=== PATIENT | male | born 1965 | race American Indian/Alaskan Native ===

== ENCOUNTER 2022-07-26 07:01 | Observation (INO) | payer OTHER ==
[2022-07-26] MEDS ORDERED: methylPREDNISolone Sod Succinate 125 MG/2 ML INJ IV ONE (07:31)
[2022-07-26] MEDS ORDERED: diphenhydrAMINE 50 MG/ML VIAL IV ONE (07:31)
[2022-07-26] MEDS ORDERED: FAMOTIDINE 20 MG/2 ML INJ IV ONE (07:31)
--- NOTE | 2022-07-26 07:35 | Emergency Department Report ---
HPI - General Chief Complaint: Allergic Reaction Time Seen by Provider: 07/26/22 07:30 - HPI HPI: Room 17 The patient is a 56-year-old male present with chief complaint of angioedema. Patient states he started lisinopril approximately 1 month ago for hypertension and he awakened this morning noticing that his top lip was swollen. Patient denies tongue swelling or difficulty breathing. ED Past Medical Hx - Past Medical History Hx Hypertension: Yes - Surgical History Past Surgical History?: No - Family History Family history: no significant - Social History Smoking Status: Current Some Day Smoker Substance Use Type: None (Denies illicit drug), Alcohol (Occasional) ED Review of Systems ROS: Stated complaint: SWOLLEN LIP/ALLERGIC REACTION Other details as noted in HPI Constitutional: no symptoms reported Eyes: denies: eye pain ENT: other (Upper lip swelling) Respiratory: denies: shortness of breath Cardiovascular: denies: chest pain Endocrine: no symptoms reported Gastrointestinal: denies: vomiting Genitourinary: denies: dysuria Musculoskeletal: denies: back pain Neurological: denies: headache Physical Exam - Physical Exam Vital Signs: Vital Signs 07/26/22 07:15 Temperature 98.2 F Pulse Rate 82 Respiratory 16 Rate Blood Pressure 177/89 [Right] O2 Sat by Pulse 97 Oximetry Physical Exam: GENERAL: The patient is well-developed well-nourished male lying on stretcher not appearing to be in acute distress. [] HEENT: Normocephalic. Atraumatic. Extraocular motions are intact. Mild upper lip swelling. Oropharynx clear. Uvula midline. No tongue swelling NECK: Supple. No meningitic signs are noted. There is no stridor CHEST/LUNGS: Clear to auscultation. There is no respiratory distress noted. HEART/CARDIOVASCULAR: Regular. There is no tachycardia. There is no gallop rub or murmur. ABDOMEN: Abdomen is soft, nontender. Patient has normal bowel sounds. There is no abdominal distention. SKIN: There is no rash. There is no edema. There is no diaphoresis. NEURO: The patient is awake, alert, and oriented. The patient is cooperative. The patient has no focal neurologic deficits. The patient has normal speech and gait. GCS 15 MUSCULOSKELETAL: There is no evidence of acute injury. ED Course Vital Signs 07/26/22 07:15 Temperature 98.2 F Pulse Rate 82 Respiratory 16 Rate Blood Pressure 177/89 [Right] O2 Sat by Pulse 97 Oximetry ED Medical Decision Making - Lab Data Result diagrams: 07/26/22 07:52 07/26/22 07:52 Laboratory Tests 07/26/22 07/26/22 07:52 07:52 WBC 8.4 RBC 4.60 Hgb 13.8 Hct 42.2 MCV 92 MCH 30 MCHC 33 RDW 14.6 Plt Count 204 Lymph % (Auto) 18.0 Christian % (Auto) 7.8 H Eos % (Auto) 1.5 Baso % (Auto) 0.8 Lymph # (Auto) 1.5 Christian # (Auto) 0.7 Eos # (Auto) 0.1 Baso # (Auto) 0.1 Seg Neutrophils % 71.9 H Seg Neutrophils # 6.0 Sodium 140 Potassium 4.1 Chloride 106.9 Carbon Dioxide 24 Anion Gap 13 BUN 17 Creatinine 0.8 Estimated GFR > 60 BUN/Creatinine Ratio 21 Glucose 111 H Calcium 9.2 - Differential Diagnosis Angioedema Critical care attestation.: If time is entered above; I have spent that time in minutes in the direct care of this critically ill patient, excluding procedure time. ED Disposition Clinical Impression: Angioedema Disposition: 09 ADMITTED INPATIENT Is pt being admited?: Yes Does the pt Need Aspirin: Yes Condition: Fair Time of Disposition: 09:58 (Care transferred to hospitalist Dr. Ayon (discussed with Dr. Moore))
[2022-07-26 09:03] LABS: Basophils # (Auto) 0.1 K/mm3 (0.0-0.1); Basophils % (Auto) 0.8 % (0.0-1.8); Eosinophils # (Auto) 0.1 K/mm3 (0.0-0.4); Eosinophils % (Auto) 1.5 % (0.0-4.3); Hematocrit 42.2 % (35.5-45.6); Hemoglobin 13.8 gm/dl (11.8-15.2); Lymphocytes # (Auto) 1.5 K/mm3 (1.2-5.4); Mean Corpuscular HGB Conc 33 % (32-34); Mean Corpuscular Volume 92 fl (84-94); Monocytes # (Auto) 0.7 K/mm3 (0.0-0.8); Monocytes % (Auto) 7.8 % (0.0-7.3); Platelet Count 204 K/mm3 (140-440); Red Cell Distribution Width 14.6 % (13.2-15.2)
[2022-07-26 09:25] LABS: BUN/Creatinine Ratio 21; Blood Urea Nitrogen 17 mg/dL (9-20); Calcium 9.2 mg/dL (8.4-10.2); Hemolysis Index 40
[2022-07-26] MEDS ORDERED: ONDANSETRON 4 MG/2 ML INJ IV PRN (10:14)
[2022-07-26] MEDS ORDERED: MORPHINE 2 MG/1 ML INJ IV PRN (10:14)
[2022-07-26] MEDS ORDERED: ACETAMINOPHEN 325 MG TAB PO PRN (10:14)
[2022-07-26] MEDS ORDERED: diphenhydrAMINE 25 MG CAP PO PRN (12:16)
[2022-07-26] MEDS ORDERED: diphenhydrAMINE 50 MG/ML VIAL IV PRN (12:16)
--- NOTE | 2022-07-26 12:18 | History and Physical Report ---
History of Present Illness Date of examination: 07/26/22 Date of admission: 07/26/22 10:14 Chief complaint: lip swelling History of present illness: The patient is a 56-year-old male present with chief complaint of angioedema. Patient states he started lisinopril approximately 1 month ago for hypertension and he awakened this morning noticing that his top lip was swollen. Patient denies tongue swelling or difficulty breathing. Review of System: Constitutional: no fever, no chills, no weight loss Ears, eyes, nose, mouth and throat: no nasal congestion, no nasal discharge, no sinus pressure, no vision change, no red eye. Neck: No neck pain or rigidity. Cardiovascular: No chest pain, no orthopnea, no palpitations, no leg swelling Respiratory: No shortness of breath, no cough, no congestion, no wheezing Gastrointestinal: no abdominal pain, no nausea, no vomiting Genitourinary : no dysuria, no hematuria Musculoskeletal: no joint swelling or muscle ache Integumentary: no rash, no pruritis Neurological: no parathesias, no numbness, no tingling Endocrine: no cold or heat intolerance, no polyuria or polydipsia Hematologic/Lymphatic: no easy bruising, no easy bleeding, no gland swelling Allergic/Immunologic: no urticaria, no angioedema. Past History Past Medical History: hypertension Past Surgical History: denies: No surgical history Social history: lives with family, smoking (1/2 pack per day ). denies: IV drug use Family history: hypertension Medications and Allergies Allergies Allergy/AdvReac Type Severity Reaction Status Date / Time JOON Inhibitors Allergy Severe Angioedema Verified 07/26/22 12:39 lisinopril AdvReac Angioedema Verified 07/26/22 12:33 Active Meds: Active Medications Acetaminophen (Acetaminophen 325 Mg Tab) 650 mg PO Q4H PRN PRN Reason: Pain MILD(1-3)/Fever >100.5/JORDAN Diphenhydramine HCl (Diphenhydramine 25 Mg Cap) 25 mg PO Q8H PRN PRN Reason: Itching Diphenhydramine HCl (Diphenhydramine 50 Mg/Ml Vial) 25 mg IV Q6H PRN PRN Reason: Itching Morphine Sulfate (Morphine 2 Mg/1 Ml Inj) 2 mg IV Q4H PRN PRN Reason: Pain, Moderate (4-6) Ondansetron HCl (Ondansetron 4 Mg/2 Ml Inj) 4 mg IV Q8H PRN PRN Reason: Nausea And Vomiting Prednisone (Prednisone 10 Mg Tab) 30 mg PO QDAY SHALONDA Sodium Chloride (Sodium Chloride 0.9% 10 Ml Flush Syringe) 10 ml IV BID SHALONDA Sodium Chloride (Sodium Chloride 0.9% 10 Ml Flush Syringe) 10 ml IV PRN PRN PRN Reason: LINE FLUSH Exam - Physical Exam Narrative exam: GENERAL: well-developed and well-nourished lying on bed appeared to be in no discomfort. HEENT: Normocephalic. Atraumatic. No conjunctival congestion or icterus. Patient has moist mucous membranes. NECK: Supple. Trachea midline. CHEST/LUNGS: Clear to auscultated bilaterally, breathing nonlabored. No wheezes crackles or rhonchi. HEART/CARDIOVASCULAR: Regular in rate and rhythm. S1 and S2 positive. ABDOMEN: Abdomen is soft, nontender. Patient has normal bowel sounds. SKIN: There is no rash. Warm and dry. NEURO: No focal motor deficit. Follows command. MUSCULOSKELETAL: No joint effusion or tenderness. EXTRIMITY: No edema, no cyanosis or clubbing. PSYCH: Cooperative. - Constitutional Vitals: Temp Pulse Resp BP Pulse Ox 96.8 F L 88 16 158/92 100 07/26/22 08:07 07/26/22 08:07 07/26/22 08:07 07/26/22 08:07 07/26/22 08:07 Results - Labs CBC & Chem 7: 07/26/22 07:52 07/26/22 07:52 Labs: Abnormal lab results 07/26/22 07/26/22 Range/Units 07:52 07:52 Edmunds % (Auto) 7.8 H (0.0-7.3) % Seg Neutrophils % 71.9 H (40.0-70.0) % Glucose 111 H (75-100) mg/dL Assessment and Plan -- Angioedema of upper lip due to lisinopril -- Hypertension -- Obesity -- Tobacco abuse We will admit the patient with observation status at [facility] with remote telemetry We will stop lisinopril, placed on scheduled steroid and Benadryl as needed Continue to monitor, if patient tolerates diet and swelling improves possible DC soon BP currently stable without medicine. Counseled for dietary intake and smoking cessation
[2022-07-26] MEDS ORDERED: predniSONE 10 MG TAB PO SCH (13:00)
--- NOTE | 2022-07-26 15:29 | Discharge Summary ---
Providers - Providers Date of Admission: 07/26/22 10:14 Date of discharge: 07/26/22 Attending physician: OLGA LOUIE Primary care physician: BAKER BENCH Hospitalization Condition: Fair Final Discharge Diagnosis (Prints w/discharge instructions): -- angioedema. --HTN. --Obesity. --Tobacco abuse Time spent for discharge: 34 minutes Core Measure Documentation - Palliative Care Palliative Care/ Comfort Measures: Not Applicable - Core Measures Any of the following diagnoses?: none Exam - Constitutional Vitals: Temp Pulse Resp BP Pulse Ox 96.8 F L 88 16 158/92 98 07/26/22 08:07 07/26/22 08:07 07/26/22 08:07 07/26/22 08:07 07/26/22 13:08 Plan Activity: advance as tolerated Weight Bearing Status: Weight Bear as Tolerated Diet: low fat, low salt Special Instructions: record daily BP diary Follow up with: PRIMARY MD REED [Primary Care Provider] - 3-5 Days CASIE RAY MD [Staff Physician] - 7 Days Prescriptions: amLODIPine 10 mg PO QDAY #30 tablet diphenhydrAMINE [Benadryl CAP] 25 mg PO Q8H PRN #14 capsule PRN Reason: Itching predniSONE 30 mg PO QDAY #2 tablet
[2022-07-26] MEDS ORDERED: amLODIPine 10 MG TAB PO SCH (16:00)
[2022-07-26 16:59] VITALS: BP 153/87
== END 2022-07-26 17:29 | disposition home or self-care (01) ==
LOC: ED 07:01 → 3A 10:14
PROVIDERS: ADMIT Internal Medicine; ATTEND Internal Medicine
DX: T78.3XXA Angioneurotic edema, initial encounter (principal); I10 Essential (primary) hypertension; E66.9 Obesity, unspecified; F17.200 Nicotine dependence, unspecified, uncomplicated; Z79.899 Other long term (current) drug therapy; Z98.890 Other specified postprocedural states; Z68.33 Body mass index [BMI] 33.0-33.9, adult
CPT/HCPCS: 36415; 80048; 85025; 96374; 96375; 99284; G0378; J1200; J2930; J3490; J7512